=== PATIENT | female | born 1985 | race African-American/Black ===

== ENCOUNTER 2017-09-02 21:47 | Emergency (ER) | payer BC ==
[~2017-09-02] VITALS: Ht 182.9 cm; Wt 121.8 kg
[2017-09-02 21:56] VITALS: BP 141/84; PULSE 72; RESP 16; TEMP 98.1; O2SAT 98
[2017-09-02 22:26] VITALS: BP 148/88; PULSE 72; RESP 18; O2SAT 100
[2017-09-02] MEDS ORDERED: KETOROLAC TROMETHAMINE 60 MG/2 ML (IM) VIAL IM ONE (22:30)
[2017-09-02 22:39] LABS: BLOOD, URINE TRACE (NEG); GLUCOSE,URINE NEG (NEG); KETONE, URINE NEG (NEG); NITRITE,URINE NEG (NEG)
[2017-09-02 22:45] LABS: BACTERIA, URINE FEW /hpf; RBC, URINE 0-3 /hpf (0-3); SQUAMOUS EPITHELIAL CELL URINE 0-5 /hpf (0-5); URINE COLOR YELLOW (YELLW/STRAW)
[2017-09-02 22:46] LABS: COMMENT (UR) CULTURE INDICATED; CULTURE IF INDICATED CULTURE INDICATED
[2017-09-02 23:11] VITALS: RESP 18
[2017-09-02] MEDS ORDERED: MACR100C2 PO (23:11)
[2017-09-02] MEDS ORDERED: IBUP-232 PO (23:11)
--- NOTE | 2017-09-02 23:12 | PD ---
HPI Chief Complaint: Chest Pain Time Seen by Provider: 22:23 Travel History International Travel<30 days: No Contact w/Intl Traveler<30days: No Traveled to known affect area: No History of Present Illness HPI The patient is a 31-year-old female that complains of bilateral arm, shoulder, right neck and left neck and right and left arm pain for 4 days. She also complains of some frequency and urgency. She denies any fever. She does have some slight diarrhea. She does have nausea without vomiting. She states she cannot be , she has had a tubal ligation. She does have a mild, nonproductive headache. Her headache is a mild headache with a goal of 4/10 and of gradual onset. PFSH Past Medical History Medical History: Denies Significant Hx Tetanus Vaccination: < 5 Years Influenza Vaccination: No ?: Not LMP: 08-03-17 Past Surgical History Other Surgery: Yes (fibroids removed from breast) Social History Alcohol Use: No Tobacco Use: No Substance Use: No Allergies-Medications (Allergen,Severity, Reaction): Coded Allergies: caffeine (Verified Allergy, Severe, Hives, 09/02/17) Reported Meds & Prescriptions Reported Meds & Active Scripts Active No Active Prescriptions or Reported Medications Review of Systems Except as stated in HPI: all other systems reviewed are Neg Physical Exam Narrative GENERAL: Well-nourished, well-developed patient.The patient is alert, oriented 3 and slight apparent distress with her multiple aches and pains of her arms, shoulders and bilateral frontal headache. Her vital signs are normal. SKIN: Focused skin assessment warm/dry. HEAD: Normocephalic. EYES: No scleral icterus. No injection or drainage. NECK: Supple, trachea midline. No JVD or lymphadenopathy. There is no meningismus and the patient flexes neck fully without any hesitation. CARDIOVASCULAR: Regular rate and rhythm without murmurs, gallops, or rubs. RESPIRATORY: Breath sounds equal bilaterally. No accessory muscle use. GASTROINTESTINAL: Abdomen soft, non-tender, nondistended. MUSCULOSKELETAL: No cyanosis, or edema. BACK: Nontender without obvious deformity. No CVA tenderness. Data Data Last Documented VS Vital Signs Date Time Temp Pulse Resp B/P (MAP) Pulse Ox O2 Delivery O2 Flow Rate FiO2 09/02/17 22:26 72 18 148/88 (108) 100 Room Air 09/02/17 21:56 98.1 Orders Orders Ketorolac Inj (Toradol Inj) (09/02/17 22:30) Urinalysis - C+S If Indicated (09/02/17 22:27) Urine Culture (09/02/17 22:30) Labs Laboratory Tests Test 09/02/17 22:30 Urine Color YELLOW Urine Turbidity SLIGHT Urine pH 6.0 Urine Specific [place] 1.025 Urine Protein NEG mg/dL Urine Glucose (UA) NEG mg/dL Urine Ketones NEG mg/dL Urine Occult Blood TRACE Urine Nitrite NEG Urine Bilirubin NEG Urine Leukocyte Esterase SMALL Urine RBC 0-3 /hpf Urine WBC 9-14 /hpf Urine Squamous Epithelial Cells 0-5 /hpf Urine Bacteria FEW /hpf Microscopic Urinalysis Comment CULTURE INDICATED MDM Medical Decision Making Medical Screen Exam Complete: Yes Emergency Medical Condition: Yes Medical Record Reviewed: Yes Interpretation(s) The urine shows specific gravity 1.0-5, trace occult blood, small leukocyte esterase with 9-14 white cells and few bacteria and culture is indicated. Differential Diagnosis Urinary tract infection, viral upper respiratory infection, viral gastroenteritis, colitis, Narrative Course The patient appears to have a urinary tract infection. The urine test is negative. Diagnosis Primary Impression: Urinary tract infection Additional Impression: Viral syndrome Med/Other Pt SpecificInfo: Prescription(s) given Scripts Nitrofurantoin Monohydrate Macrocrystals (Macrobid) 100 Mg Cap 100 MG PO BID for Infection for 10 Days, #20 CAP 0 Refills Prov: Luca Sahu MD 09/02/17 Ibuprofen (Ibuprofen) 600 Mg Tab 600 MG PO TID, #33 TAB 0 Refills Prov: Luca Sahu MD 09/02/17 Disposition: 01 DISCHARGE HOME Condition: Stable Luca Sahu MD Sep 02, 2017 23:12
[2017-09-02] MEDS ORDERED: NITROFURANTOIN MONOHYD MACROCR 100 MG CAP PO ONE (23:15)
[2017-09-02] MEDS ORDERED: PROC10TA PO (23:21)
[2017-09-02 23:29] VITALS: BP 140/82
[2017-09-02] MEDS ORDERED: PROMETHAZINE HCL 25 MG TAB PO ONE (23:30)
[2017-09-02] MEDS ORDERED: PROCHLORPERAZINE MALEATE 10 MG TAB PO ONE (23:30)
== END 2017-09-02 23:35 | disposition home or self-care (01) ==
LOC: PHED 21:47
DX: N39.0 Urinary tract infection, site not specified (principal); B96.89 Other specified bacterial agents as the cause of diseases classified elsewhere; B34.9 Viral infection, unspecified; R51 Headache
CPT/HCPCS: 81001; 87077; 87086; 87186; 96372; 99284; J1885; Q0164